=== PATIENT | male | born 1930 | race Caucasian/White ===

== ENCOUNTER 2016-12-20 11:59 | Inpatient (IN) | payer MEDICARE ==
[2016-12-20] MEDS ORDERED: NS 0.9% 1000 ML* 2,000 ML IV ONE (12:19)
[2016-12-20] MEDS ORDERED: Vancomycin(*) 1,000 MG in NS 0.9% 250 ML* 250 ML IVPB ONE (12:19)
[2016-12-20] MEDS ORDERED: Levofloxacin 750 MG IVPREMIX(* 750 MG/150 ML BAG IVPB ONE (12:19)
[2016-12-20] MEDS ORDERED: Acetaminophen TAB* 325 MG PO ONE (13:09)
[2016-12-20] MEDS ORDERED: NS 0.9% 250 ML* 250 ML ONE (13:16)
[2016-12-20 13:26] LABS: Hematocrit 39 % (42-52); Hemoglobin 12.9 g/dl (14.0-18.0); Mean Corpuscular HGB Conc 33 g/dl (31-36); Mean Corpuscular Hemoglobin 32 pg (27-31); Mean Corpuscular Volume 96 fL (80-94); Mean Platelet Volume 7 um3 (7.4-10.4); Red Blood Count 4.06 10^6/ul (4.0-5.4); Red Cell Distribution Width 15 % (10.5-15); White Blood Count 15.7 10^3/ul (3.5-10.8)
[2016-12-20] MEDS ORDERED: Vancomycin(*) 1,000 MG BAG IVPB ONE (13:32)
[2016-12-20 13:34] LABS: Albumin 2.7 g/dL (3.2-5.2); BUN/Creatinine Ratio 16.8 (8-20); Calcium 9.1 mg/dL (8.6-10.3); EGFR African American 78.9 (>60); EGFR Non-African American 61.4 (>60); Globulin 3.6 g/dL (2-4); Potassium 4.5 mmol/L (3.5-5.0); Total Bilirubin 0.8 mg/dL (0.2-1.0); Total Protein 6.3 g/dL (6.4-8.9)
--- NOTE | 2016-12-20 13:36 | RAD ---
INDICATION: Cough and fever. COMPARISON: Comparison is made with a prior study from November 18, 2016. TECHNIQUE: A portable view of the chest was obtained. FINDINGS: Cardiac and mediastinal contours appear to be within normal limits. There is elevation of the right hemidiaphragm which is unchanged. The lungs are underinflated and clear. No pleural effusion is seen. IMPRESSION: NO EVIDENCE FOR ACUTE FINDING.
[2016-12-20 13:44] LABS: Troponin I 0.07 ng/mL (<0.04)
[2016-12-20] MEDS ORDERED: Oseltamivir CAP* 75 MG PO ONE (13:48)
[2016-12-20 13:50] LABS: Urine Bacteria Absent (Absent); Urine Bilirubin Negative (Negative); Urine Glucose Negative (Negative); Urine Nitrite Negative (Negative)
[2016-12-20] MEDS ORDERED: LORazepam INJ* 2 MG/ML 1 ML VIAL ONE (14:25)
--- NOTE | 2016-12-20 14:55 | RAD ---
INDICATION: No onset seizure. COMPARISON: Comparison is made with a prior CT of the brain from November 18, 2016. TECHNIQUE: Contiguous axial sections of the brain were obtained from the skull base to the vertex without contrast. The exam is limited due to motion artifact. FINDINGS: The ventricles, cisterns and sulci are enlarged consistent with age-related atrophy. There are multiple focal areas of decreased density in the subcortical and periventricular white matter suggestive of moderate chronic small vessel ischemic changes. There is a lacunar infarct present within the right caudate nucleus. There is no evidence for hemorrhage. There is soft tissue swelling anterior to the right frontal bone. No fracture is seen. There is mild mucosal thickening within the ethmoid air cells and left maxillary sinus. No air-fluid levels are present. IMPRESSION: 1. LIMITED STUDY, NO EVIDENCE FOR ACUTE INTRACRANIAL NORMALITY. 2. ATROPHY AND MODERATE CHRONIC SMALL VESSEL ISCHEMIC CHANGES. 3. 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
--- NOTE | 2016-12-20 15:03 | RAD ---
INDICATION: Left lower quadrant pain, evaluate for diverticulitis. COMPARISON: Correlation is made with a prior CT of the abdomen and pelvis from November 18, 2016. TECHNIQUE: A CT scan of the abdomen and pelvis was performed without intravenous or oral contrast. Contiguous axial sections were obtained from the lung bases through the symphysis pubis. Images were reconstructed in the coronal and sagittal planes. The exam is limited due to motion artifact. FINDINGS: There are dependent bilateral lower lobe infiltrates seen on images through the lung bases. No pleural effusion is present. The liver has a lobulated appearance. No focal abnormality is seen on this noncontrast study no calcified gallstones are seen. The pancreas appears to be within normal limits. The spleen is normal in size. There are several calcifications present suggestive of old granulomatous disease. The adrenal glands and kidneys are normal in size. No renal calculi or hydronephrosis is seen. There is a cyst arising from the posterior aspect of the left kidney measuring 2.6 cm in size. The aorta is normal in caliber with moderate calcific plaque present. No significant enlarged retroperitoneal lymph nodes are seen. The stomach, small and large bowel appear nondistended. The appendix is not visualized. There is moderate descending and sigmoid diverticulosis without evidence for diverticulitis. No free intraperitoneal air or fluid is seen. There is a mild compression fracture of the superior endplate of the T12 vertebral body which is unchanged. No other focal osseous abnormalities are seen. IMPRESSION: 1. BILATERAL LOWER LOBE INFILTRATES. 2. NO EVIDENCE FOR ACUTE FINDING IN THE ABDOMEN OR CAUSE FOR THE PATIENT'S ABDOMINAL PAIN IS SEEN.
[2016-12-20] MEDS ORDERED: Codeine TAB* 15 MG PO PRN (16:08)
[2016-12-20] MEDS ORDERED: Albuterol/Ipratropium NEB.SOL* Albuterol 2.5 MG/Ipratropium 0.5 MG 3 ML INH PRN (16:09)
[2016-12-20] MEDS ORDERED: Saline NASAL SPRAY 0.65%* BTL BOTH NARES PRN (16:15)
[2016-12-20] MEDS ORDERED: CMCS: Lactase Enzyme (NF) 3,000 UNIT TAB PO PRN (16:15)
[2016-12-20] MEDS ORDERED: NS 0.9% 1000 ML* 1,000 ML IV SCH (16:15)
[2016-12-20] MEDS ORDERED: Bisacodyl SUPP* 10 MG SUPP PR PRN (16:15)
[2016-12-20] MEDS ORDERED: guaiFENesin LIQ* 100 MG/5 ML UDC PO PRN (16:15)
[2016-12-20] MEDS ORDERED: Acetaminophen SUPP* 650 MG SUPP PR PRN (16:15)
[2016-12-20] MEDS ORDERED: Magnesium Hydroxide LIQ* 30 ML UDC PO PRN (16:15)
[2016-12-20] MEDS ORDERED: Ondansetron TAB* 4 MG PO PRN (16:15)
[2016-12-20] MEDS ORDERED: Al Hydrox/Mg Hydrox/Simet LIQ* 30 ML UDC PO PRN (16:15)
[2016-12-20] MEDS ORDERED: Acetaminophen TAB* 325 MG PO PRN (16:15)
--- NOTE | 2016-12-20 17:40 | ED ---
Ace Valdez Erika, scribed for Venkatesh Elizabeth MD on 12/20/16 at 1224 . Complex/Multi-Sys Presentation - HPI Summary HPI Summary: Patient is an 86-year-old male presenting to the ED with a CC of weakness. Majority of history is provided by pt's son. He reports that patient has been here 5x in the past few months, due to temporal arteritis and diverticulitis. Son reports that pt has been taking prednisone for the temporal arteritis, but each time he is tapered off symptoms return, including left temporal headache, confusion, and short-term memory loss. Per son, this episode seems different. Pt had a fever (max 100.7) last night, has been increasingly weak, and has had an increased cough. 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 En route by EMS, pt had a low O2 sat, which son states has not occurred in the past - pt does not use home O2. Son also reports that pt has been complaining of some LLQ pain. Pt lives at [facility], where he moved recently after living at [facility]. Last admission reviewed: 11/18-11/22 - at that point he had AMS, concerning UA, and he was put on antibiotics and 60mg daily of prednisone. - History Of Current Complaint Hx Obtained From: Patient, Family/Fire Support Specialist - Son Onset/Duration: Gradual Onset, Lasting Days, Worse Since Timing: Constant Severity Currently: Moderate Aggravating Factor(s): Nothing Alleviating Factor(s): Nothing Associated Signs And Symptoms: Positive: Weakness, Cough, Abdominal Pain, Fever - Allergies/Home Medications Allergies/Adverse Reactions: Allergies Allergy/AdvReac Type Severity Reaction Status Date / Time Cephalosporins Allergy Unknown Verified 11/18/16 10:08 Reaction Details Ciprofloxacin Allergy Unknown Verified 11/21/16 10:39 Reaction Details Penicillins Allergy Unknown Verified 11/18/16 10:08 Reaction Details Sulfa Antibiotics Allergy Unknown Verified 11/18/16 10:08 Reaction Details Sulfamethoxazole Allergy Unknown Verified 11/18/16 10:08 w/Trimethoprim Reaction [From Bactrim] Details Home Medications: Home Medications Acetaminophen TAB* [Tylenol TAB*] 650 mg PO Q4H PRN 12/20/16 [History Confirmed 12/20/16] Pantoprazole TAB (NF) [Protonix TAB (NF)] 20 mg PO DAILY 12/20/16 [History Confirmed 12/20/16] guaiFENesin LIQ* [Robitussin*] 10 ml PO Q4H PRN 12/20/16 [History Confirmed ] predniSONE TAB* [Deltasone TAB*] 60 mg PO DAILY 12/20/16 [History Confirmed ] PMH/Surg Hx/FS Hx/Imm Hx Endocrine/Hematology History: Reports: Hx Thyroid Disease - hypothyroidism, Other Endocrine/Hematological Disorders - HYPOPARATHYROIDISM Denies: Hx Diabetes Cardiovascular History: Reports: Hx Congestive Heart Failure, Hx Coronary Artery Disease, Hx Hypertension, Other Cardiovascular Problems/Disorders - CAD, TEMPORAL ARTERITIS Denies: Hx Pacemaker/ICD Respiratory History: Reports: Hx Asthma GI History: Reports: Hx Diverticulosis, Hx Gastroesophageal Reflux Disease, Other GI Disorders - CONSTIPATION OCCASIONALY History: Reports: Hx Benign Prostatic Hyperplasia, Other Problems/ Disorders - HX OF BLADDER INFECTION, UTI's Musculoskeletal History: Reports: Hx Arthritis Sensory History: Reports: Hx Cataracts - cataracts surgery "few years ago", Hx Contacts or Glasses - reading glasses, Hx Hearing Aid Opthamlomology History: Reports: Hx Cataracts - cataracts surgery "few years ago ", Hx Contacts or Glasses - reading glasses Neurological History: Reports: Hx Headaches, Hx Migraine, Hx Transient Ischemic Attacks (TIA) Psychiatric History: Denies: Hx Panic Disorder - Cancer History Cancer Type, Location and Year: PROSTATE CA, melanoma Hx Chemotherapy: Yes - Surgical History Surgery Procedure, Year, and Place: THORACIC OUTLET 1979, left tkr, mastoid bilat ears, carpal tunnel, hernia X2, cataracts, melanoma removed right side of face Hx Anesthesia Reactions: No Infectious Disease History: Reports: Hx Clostridium Difficile, Hx of Known/ Suspected MRSA - Negative MRSA 10/15/2016, Hx Shingles - Family History Known Family History: Positive: Cardiac Disease, Hypertension, Diabetes - Social History Occupation: Retired Lives: Assisted Living Alcohol Use: Occasionally Hx Substance Use: No Substance Use Type: Reports: None Substance Use Comment - Amount & Last Used: per son, pain medication substance use- mid after thoracic outlet sx Hx Tobacco Use: No Smoking Status (MU): Never Smoked Tobacco Review of Systems Positive: Fever Positive: Cough Positive: Abdominal Pain - LLQ Positive: Weakness All Other Systems Reviewed And Are Negative: Yes Physical Exam - Summary Physical Exam Summary: Constitutional: Comfortable, pleasant, alert. Appears generally weak. Pt is having some chills HEENT: moist mucosa, AUDRA Neck: Soft, supple, no adenopathy, no edema Heart: Tachycardic at 102 bpm. Heart sounds distant, no murmurs, rubs, or gallops Lungs: Rales and rhonchi in the left lower lobe Abdomen: Soft, flat, some tenderness without rebound in the LLQ Extremities: Bilateral pitting edema without redness Neurological: A&Ox3 Psychological: logical, coherent Triage Information Reviewed: Yes Vital Signs On Initial Exam: Temp Pulse Resp BP Pulse Ox 98.7 F 101 20 126/59 97 12/20/16 12:16 12/20/16 12:16 12/20/16 12:16 12/20/16 12:16 12/20/16 12:16 Vital Signs Reviewed: Yes Diagnostics - Vital Signs Vital Signs Temp Pulse Resp BP Pulse Ox 12/20/16 15:30 106 27 99/57 91 12/20/16 15:28 105 23 94/55 91 12/20/16 15:15 104 26 98/74 92 12/20/16 15:00 108 27 119/85 92 12/20/16 14:46 118/50 12/20/16 14:18 110 26 93 12/20/16 14:16 110 27 111/88 94 12/20/16 14:00 110 26 182/56 93 12/20/16 13:57 101.7 F 12/20/16 13:45 119 29 193/143 95 12/20/16 13:30 131 18 171/141 92 12/20/16 13:15 121 27 157/98 93 12/20/16 13:00 118 28 162/99 94 12/20/16 12:58 29 141/86 12/20/16 12:30 29 146/56 12/20/16 12:16 98.7 F 101 20 126/59 97 12/20/16 12:10 104 92 12/20/16 12:09 126/59 - Laboratory Lab Results: Lab Results 12/20/16 12/20/16 12/20/16 Range/Units 12:50 12:50 12:50 WBC 15.7 H (3.5-10.8) 10^3/ul RBC 4.06 (4.0-5.4) 10^6/ul Hgb 12.9 L (14.0-18.0) g/dl Hct 39 L (42-52) % MCV 96 H (80-94) fL MCH 32 H (27-31) pg MCHC 33 (31-36) g/dl RDW 15 (10.5-15) % Plt Count 203 (150-450) 10^3/ul MPV 7 L (7.4-10.4) um3 Neut % (Auto) 93.8 H (38-83) % Lymph % (Auto) 4.1 L (25-47) % [place] % (Auto) 1.8 (1-9) % Eos % (Auto) 0.1 (0-6) % Baso % (Auto) 0.2 (0-2) % Absolute Neuts (auto) 14.8 H (1.5-7.7) 10^3/ul Absolute Lymphs (auto) 0.6 L (1.0-4.8) 10^3/ul Absolute Monos (auto) 0.3 (0-0.8) 10^3/ul Absolute Eos (auto) 0 (0-0.6) 10^3/ul Absolute Basos (auto) 0 (0-0.2) 10^3/ul Absolute Nucleated RBC 0.01 10^3/ul Nucleated RBC % 0.1 INR (Anticoag Therapy) 0.99 (0.89-1.11) APTT 19.3 L (26.0-36.3) seconds Fibrinogen 513 H (110.8-404.3) mg/dL Sodium (133-145) mmol/L Potassium (3.5-5.0) mmol/L Chloride (101-111) mmol/L Carbon Dioxide (22-32) mmol/L Anion Gap (2-11) mmol/L BUN (6-24) mg/dL Creatinine (0.67-1.17) mg/dL Est GFR ( Amer) (>60) Est GFR (Non-Af Amer) (>60) BUN/Creatinine Ratio (8-20) Glucose (70-100) mg/dL Lactic Acid (0.5-2.0) mmol/L Calcium (8.6-10.3) mg/dL Total Bilirubin (0.2-1.0) mg/dL AST (13-39) U/L ALT (7-52) U/L Alkaline Phosphatase (34-104) U/L Troponin I (<0.04) ng/mL B-Natriuretic Peptide ( - 100) pg/mL Total Protein (6.4-8.9) g/dL Albumin (3.2-5.2) g/dL Globulin (2-4) g/dL Albumin/Globulin Ratio (1-3) Urine Color Yellow Urine Appearance Cloudy Urine pH 7.0 (5-9) Ur Specific [place] 1.011 (1.010-1.030) Urine Protein 1+(30 mg/dl) H (Negative) Urine Ketones Negative (Negative) Urine Blood 1+ H (Negative) Urine Nitrate Negative (Negative) Urine Bilirubin Negative (Negative) Urine Urobilinogen Negative (Negative) Ur Leukocyte Esterase 3+ H (Negative) Urine WBC (Auto) 3+(>20/hpf) H (Absent) Urine RBC (Auto) 1+(3-5/hpf) H (Absent) Ur Squamous Epith Cells Present H (Absent) Urine Bacteria Absent (Absent) Urine Glucose Negative (Negative) Influenza A (Rapid) (Negative) Influenza B (Rapid) (Negative) 12/20/16 12/20/16 12/20/16 Range/Units 12:50 12:50 13:23 WBC (3.5-10.8) 10^3/ul RBC (4.0-5.4) 10^6/ul Hgb (14.0-18.0) g/dl Hct (42-52) % MCV (80-94) fL MCH (27-31) pg MCHC (31-36) g/dl RDW (10.5-15) % Plt Count (150-450) 10^3/ul MPV (7.4-10.4) um3 Neut % (Auto) (38-83) % Lymph % (Auto) (25-47) % [place] % (Auto) (1-9) % Eos % (Auto) (0-6) % Baso % (Auto) (0-2) % Absolute Neuts (auto) (1.5-7.7) 10^3/ul Absolute Lymphs (auto) (1.0-4.8) 10^3/ul Absolute Monos (auto) (0-0.8) 10^3/ul Absolute Eos (auto) (0-0.6) 10^3/ul Absolute Basos (auto) (0-0.2) 10^3/ul Absolute Nucleated RBC 10^3/ul Nucleated RBC % INR (Anticoag Therapy) (0.89-1.11) APTT (26.0-36.3) seconds Fibrinogen (110.8-404.3) mg/dL Sodium 130 L (133-145) mmol/L Potassium 4.5 (3.5-5.0) mmol/L Chloride 92 L (101-111) mmol/L Carbon Dioxide 31 (22-32) mmol/L Anion Gap 7 (2-11) mmol/L BUN 19 (6-24) mg/dL Creatinine 1.13 (0.67-1.17) mg/dL Est GFR ( Amer) 78.9 (>60) Est GFR (Non-Af Amer) 61.4 (>60) BUN/Creatinine Ratio 16.8 (8-20) Glucose 125 H (70-100) mg/dL Lactic Acid 2.2 H* (0.5-2.0) mmol/L Calcium 9.1 (8.6-10.3) mg/dL Total Bilirubin 0.80 (0.2-1.0) mg/dL AST 14 (13-39) U/L ALT 19 (7-52) U/L Alkaline Phosphatase 52 (34-104) U/L Troponin I 0.07 H* (<0.04) ng/mL B-Natriuretic Peptide ( - 100) pg/mL Total Protein 6.3 L (6.4-8.9) g/dL Albumin 2.7 L (3.2-5.2) g/dL Globulin 3.6 (2-4) g/dL Albumin/Globulin Ratio 0.8 L (1-3) Urine Color Urine Appearance Urine pH (5-9) Ur Specific [place] (1.010-1.030) Urine Protein (Negative) Urine Ketones (Negative) Urine Blood (Negative) Urine Nitrate (Negative) Urine Bilirubin (Negative) Urine Urobilinogen (Negative) Ur Leukocyte Esterase (Negative) Urine WBC (Auto) (Absent) Urine RBC (Auto) (Absent) Ur Squamous Epith Cells (Absent) Urine Bacteria (Absent) Urine Glucose (Negative) Influenza A (Rapid) Positive H (Negative) Influenza B (Rapid) Negative (Negative) 12/20/16 Range/Units 13:50 WBC (3.5-10.8) 10^3/ul RBC (4.0-5.4) 10^6/ul Hgb (14.0-18.0) g/dl Hct (42-52) % MCV (80-94) fL MCH (27-31) pg MCHC (31-36) g/dl RDW (10.5-15) % Plt Count (150-450) 10^3/ul MPV (7.4-10.4) um3 Neut % (Auto) (38-83) % Lymph % (Auto) (25-47) % [place] % (Auto) (1-9) % Eos % (Auto) (0-6) % Baso % (Auto) (0-2) % Absolute Neuts (auto) (1.5-7.7) 10^3/ul Absolute Lymphs (auto) (1.0-4.8) 10^3/ul Absolute Monos (auto) (0-0.8) 10^3/ul Absolute Eos (auto) (0-0.6) 10^3/ul Absolute Basos (auto) (0-0.2) 10^3/ul Absolute Nucleated RBC 10^3/ul Nucleated RBC % INR (Anticoag Therapy) (0.89-1.11) APTT (26.0-36.3) seconds Fibrinogen (110.8-404.3) mg/dL Sodium (133-145) mmol/L Potassium (3.5-5.0) mmol/L Chloride (101-111) mmol/L Carbon Dioxide (22-32) mmol/L Anion Gap (2-11) mmol/L BUN (6-24) mg/dL Creatinine (0.67-1.17) mg/dL Est GFR ( Amer) (>60) Est GFR (Non-Af Amer) (>60) BUN/Creatinine Ratio (8-20) Glucose (70-100) mg/dL Lactic Acid (0.5-2.0) mmol/L Calcium (8.6-10.3) mg/dL Total Bilirubin (0.2-1.0) mg/dL AST (13-39) U/L ALT (7-52) U/L Alkaline Phosphatase (34-104) U/L Troponin I (<0.04) ng/mL B-Natriuretic Peptide 129 H ( - 100) pg/mL Total Protein (6.4-8.9) g/dL Albumin (3.2-5.2) g/dL Globulin (2-4) g/dL Albumin/Globulin Ratio (1-3) Urine Color Urine Appearance Urine pH (5-9) Ur Specific [place] (1.010-1.030) Urine Protein (Negative) Urine Ketones (Negative) Urine Blood (Negative) Urine Nitrate (Negative) Urine Bilirubin (Negative) Urine Urobilinogen (Negative) Ur Leukocyte Esterase (Negative) Urine WBC (Auto) (Absent) Urine RBC (Auto) (Absent) Ur Squamous Epith Cells (Absent) Urine Bacteria (Absent) Urine Glucose (Negative) Influenza A (Rapid) (Negative) Influenza B (Rapid) (Negative) Result Diagrams: 12/20/16 12:50 12/20/16 12:50 Lab Statement: Any lab studies that have been ordered have been reviewed, and results considered in the medical decision making process. - Radiology CXR Radiology Interpretation Completed By: Radiologist - IMPRESSION: NO EVIDENCE FOR ACUTE FINDING. - CT CT Brain CT Interpretation Completed By: Radiologist - IMPRESSION: 1. LIMITED STUDY, NO EVIDENCE FOR ACUTE INTRACRANIAL NORMALITY. 2. ATROPHY AND MODERATE CHRONIC SMALL VESSEL ISCHEMIC CHANGES. 3. 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 CT A/P W/O CT Interpretation Completed By: Radiologist - IMPRESSION: 1. BILATERAL LOWER LOBE INFILTRATES. 2. NO EVIDENCE FOR ACUTE FINDING IN THE ABDOMEN OR CAUSE FOR THE PATIENT'S ABDOMINAL PAIN IS SEEN. - EKG 13:23 Cardiac Rate: Tachycardia - at 131 bpm EKG Rhythm: Sinus Tachycardia Re-Evaluation - Re-Evaluation First Eval Re-Evaluation Time: 14:28 Change: Worse Comment: At CT scan, pt had a 30 second tonic-clonic seizure, self-resolved, maintained his airway, discussed with family - no prior Hx of seizures. Will include head CT. Complex Multi-Symp Course/Dx Assessment/Plan: He presents febrile, tachycardic, and weak, with cough and SOB. We have diagnosed with influenza. He will be admitted. - Diagnoses Provider Diagnoses: SOB (shortness of breath), Fever and chills, Influenza A - Physician Notifications Discussed Care Of Patient With: Dr. Melissa Groves (pt PCP and hospitalist) at 12: 51 - discussed patient's initial presentation. aware of likely admission. Dr. Groves at 13:51 - would like hospitalist to admit for her. Dr. Waterman ( hospitalist) at 14:05 - agrees to admit Instructed by Provider To: Admit As Inpatient - Critical Care Time Critical Care Time: 30-74 min - 90 minutes Discharge - Discharge Plan Condition: Stable Disposition: ADMITTED TO [facility] documentation as recorded by the Ace zee Erika accurately reflects the service I personally performed and the decisions made by me, Venkatesh Elizabeth MD.
--- NOTE | 2016-12-20 18:51 | HP ---
MEDICATION / ALLERGIES ADDENDUM NOW INCLUDED ON THIS REPORT ADMISSION HISTORY AND PHYSICAL: DATE OF ADMISSION: 12/20/16 PRIMARY CARE PROVIDER: Dr. Melissa Groves. HEALTHCARE PROXY: His son. CODE STATUS: Full, discussed with the patient and his son. SOURCE OF INFORMATION: History obtained from interview with the patient, his son, review of past medical records. RELIABILITY: Fair. CHIEF COMPLAINT: Fever. HISTORY OF PRESENT ILLNESS: This is an 86-year-old gentleman, past medical history of temporal arteritis with two flares with steroid tapering, last flare 11/18/16, as well as history of CVA, who has been a resident of [facility], had been doing relatively well despite last several months of setbacks until the day prior to presentation. The son last saw him 24 hours prior to presentation , he was noted to be increasingly lethargic and overnight was noted to have increased temperature to a max of 101.7, that was improved with Tylenol. However, in the morning, he was noted to have decreased oxygen saturation and he had to be started on oxygen. Therefore, was sent to the emergency room. He was noted to have new cough over the last 24 hours associated with wheeze, productive of scant yellow sputum. In the emergency room, he was noted with temperature of 101.7 again and tested positive for influenza A. CAT scan of his abdomen was being performed by the emergency room provider at which time it was thought that he had a seizure after being transferred to the scanning machine. When seen by this author, the patient was contracted on his side with low-frequency tremors, lasted for less than 30 seconds, after which he was fully oriented to himself, knew the president. In this author's opinion, it is unclear this truly represented a seizure. When seen again in the emergency room by this author, he did note shortness of breath, although was increasingly confused since the time of presentation. 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 ADDENDUM: HOME MEDICATIONS: 1. Ascorbic acid 500 mg every other day. 2. Tramadol 500 mg twice daily. 3. Clopidogrel 75 mg at bedtime. 4. Calcium carbonate 1 tab twice daily. 5. Prednisone 60 mg daily. 6. Flomax 0.8 mg at bedtime. 7. Saline nasal spray one spray both nares twice daily. 8. Vitamin B12 at 1000 mcg daily. 9. Zofran 4 mg every 4 hours as needed for nausea. 10. Synthroid 50 mcg daily. 11. Lactase 3000 units three times a day before meals as needed. 12. Ferrous sulfate 325 mg every other day. 13. Erythromycin ophthalmic ointment 1 application both eyes at bedtime. 14. Benadryl 25 mg three times a day as needed for sleep. 15. Maalox 15 mL every 4 hours as needed. 16. Acetaminophen oral or per rectum 650 mg every 4 hours as needed for pain or fever. 17. Guaifenesin 10 mL every 4 hours as needed for cough. 18. Protonix 20 mg daily. 19. Dulcolax suppository 10 mg at night as needed for constipation. 20. Milk of Magnesia 30 mL daily as needed. ALLERGIES: CEPHALOSPORIN, CIPROFLOXACIN, PENICILLIN, SULFA ANTIBIOTICS and BACTRIM. PROBLEMS: 1. Pneumonia secondary to flu and was treated with oseltamivir for 5 days. Received first dose in the emergency room. FAMILY HISTORY: Reviewed and noncontributory to this admission. SOCIAL HISTORY: Lives in [facility]. Nonsmoker. Nondrinker. He is . Son is surrogate decision maker. REVIEW OF SYSTEMS: As per HPI. Otherwise, all others negative. PHYSICAL EXAMINATION GENERAL: Elderly gentleman sitting up in bed. Moderate respiratory distress with intercostal retractions. VITAL SIGNS: When seen by this author, 99/57, heart rate 103, respiratory rate is 28, 93% on 3 L nasal cannula, T-max in the emergency room 101.7. HEENT: His oropharynx is clear. He has dry mucous membranes. Sclerae anicteric. NECK: He has nonelevated JVD. LUNGS: Have diffuse end-expiratory wheezes with bibasilar rales. HEART: He is tachycardic without appreciable murmurs. ABDOMEN: Soft, nontender, nondistended. He has positive bowel sounds. EXTREMITIES: Warm and well perfused with 3+ lower extremity pitting edema to the knees. NEUROLOGIC: He was alert and oriented x3 without cranial nerve deficits. Did not have temporal artery tenderness bilaterally. DIAGNOSTIC STUDIES/LAB DATA: Labs reviewed: Notable for positive influenza B. White blood cell count 15.7, hemoglobin 12.9, platelets 203. Sodium 130, chloride 92, bicarb 31, BUN 19, creatinine 1.13, glucose 125, lactic acid 2.2. Troponin I 0.07. BNP 129. Data reviewed: CT abdomen and pelvis: Bilateral lower lobe infiltrates. No evidence for acute findings in abdomen. CT brain, impression: Limited study. No evidence of acute intracranial abnormalities. Atrophy and moderate chronic small vessel ischemic changes. There is an old lacunar infarct in the right caudate nucleus. ASSESSMENT AND PLAN: This is an 86-year-old man, past medical history of temporal arteritis as well as recent cerebrovascular accident in the last year, presenting with fevers, found in respiratory distress in the setting of influenza A pneumonia. 1. Respiratory failure: Now requiring oxygen and increased respiratory rate. Admit to ICU. Place on Vapotherm. Having paroxysms of coughing make it difficult for him to ventilate. We will treat with codeine now and again in the future if needed or p.r.n. DuoNebs p.r.n. We will increase systemic steroids to stress dose in the setting of influenza pneumonia. Volume resuscitation 125 cc normal saline per hour for one additional liter. 2. Temporal arteritis: Increase steroids as indicated above. 3. Hypertension: Holding home medications. 4. Elevated troponin: Trend troponin, suspect in the setting of demand ischemia. 5. Concern for seizure: When seen by this author, __not__ consistent with seizure activity especially given rapid resolution of mental status immediately status post event. Although this is possible in the setting of cerebrovascular accident and temporal arteritis, we will treat this critical illness, not start antiepileptics at this time. We will place on seizure precautions. 6. Code status remains full. Discussed with the patient and his son. TIME SPENT: Greater than 75 minutes was spent in admission history and physical of this patient, of which greater than half was spent [id number] with the patient. CC: Dr. Melissa Groves * [id number] #: [id number] #: [id number] [facility]
--- NOTE | 2016-12-20 19:08 | HP ---
HISTORY AND PHYSICAL: * ADDENDUM: DATE OF ADMISSION: 12/20/16 HOME MEDICATIONS: 1. Ascorbic acid 500 mg every other day. 2. Tramadol 500 mg twice daily. 3. Clopidogrel 75 mg at bedtime. 4. Calcium carbonate 1 tab twice daily. 5. Prednisone 60 mg daily. 6. Flomax 0.8 mg at bedtime. 7. Saline nasal spray one spray both nares twice daily. 8. Vitamin B12 at 1000 mcg daily. 9. Zofran 4 mg every 4 hours as needed for nausea. 10. Synthroid 50 mcg daily. 11. Lactase 3000 units three times a day before meals as needed. 12. Ferrous sulfate 325 mg every other day. 13. Erythromycin ophthalmic ointment 1 application both eyes at bedtime. 14. Benadryl 25 mg three times a day as needed for sleep. 15. Maalox 15 mL every 4 hours as needed. 16. Acetaminophen oral or per rectum 650 mg every 4 hours as needed for pain or fever. 17. Guaifenesin 10 mL every 4 hours as needed for cough. 18. Protonix 20 mg daily. 19. Dulcolax suppository 10 mg at night as needed for constipation. 20. Milk of Magnesia 30 mL daily as needed. ALLERGIES: CEPHALOSPORIN, CIPROFLOXACIN, PENICILLIN, SULFA ANTIBIOTICS and BACTRIM. Problems: 1. Pneumonia secondary to flu and was treated with oseltamivir for 5 days. Received first dose in the emergency room. [id number]/[facility] #: [id number] MTDD
[2016-12-20] MEDS: Hydrocortisone INJ* 100 MG VIAL IV SCH (20:04)
[2016-12-20] MEDS: Tamsulosin CAP* 0.4 MG PO SCH (20:06)
[2016-12-20] MEDS: Clopidogrel TAB* 75 MG PO SCH (20:06)
[2016-12-20] MEDS: Erythromycin OPTH OINT* APPLIC OINT BOTH EYES SCH (22:21)
[2016-12-20] MEDS: Oseltamivir CAP* 75 MG PO SCH (22:22)
[2016-12-20] MEDS: Heparin VIAL(*) 5000 UNITS/ML VIAL (FIVE THOUSAND) SUBCUT SCH (22:22)
[2016-12-21] MEDS: Hydrocortisone INJ* 100 MG VIAL IV SCH ×3 (01:26→17:01)
[2016-12-21] MEDS ORDERED: Levothyroxine TAB* 25 MCG TAB ONE (02:49)
[2016-12-21 06:06] LABS: Hematocrit 30 % (42-52); Hemoglobin 10.1 g/dl (14.0-18.0); Mean Corpuscular HGB Conc 34 g/dl (31-36); Mean Corpuscular Hemoglobin 32 pg (27-31); Mean Corpuscular Volume 95 fL (80-94); Mean Platelet Volume 7 um3 (7.4-10.4); Red Blood Count 3.18 10^6/ul (4.0-5.4); Red Cell Distribution Width 15 % (10.5-15); White Blood Count 14.6 10^3/ul (3.5-10.8)
[2016-12-21] MEDS: Levothyroxine TAB* 50 MCG TAB PO SCH (06:08)
[2016-12-21] MEDS: Heparin VIAL(*) 5000 UNITS/ML VIAL (FIVE THOUSAND) SUBCUT SCH ×3 (06:08→21:45)
[2016-12-21 07:04] LABS: Calcium 7.7 mg/dL (8.6-10.3); EGFR African American 115.9 (>60); EGFR Non-African American 90.1 (>60); Potassium 3.8 mmol/L (3.5-5.0)
[2016-12-21] MEDS: Cyanocobalamin TAB* 500 MCG PO SCH (10:00)
[2016-12-21] MEDS: Oseltamivir CAP* 75 MG PO SCH ×2 (10:01→21:44)
[2016-12-21] MEDS: CMCS: Pantoprazole TAB (NF) 40 MG TAB PO SCH (10:08)
[2016-12-21 11:51] LABS: C Reactive Protein 170.07 mg/L (< 5.00); Magnesium 1.9 mg/dL (1.9-2.7); Phosphorus 3.4 mg/dL (2.5-5.0)
[2016-12-21] MEDS: Levofloxacin 500 MG IVPREMIX(* 500 MG/100 ML BAG IVPB SCH (13:52)
[2016-12-21] MEDS ORDERED: Haloperidol INJ IV/IM* 5 MG/ML AMP ONE (19:31)
[2016-12-21] MEDS: Tamsulosin CAP* 0.4 MG PO SCH (21:44)
[2016-12-21] MEDS: traMADol TAB* 50 MG PO PRN (21:44)
[2016-12-21] MEDS: Erythromycin OPTH OINT* APPLIC OINT BOTH EYES SCH (21:48)
[2016-12-21] MEDS: Clopidogrel TAB* 75 MG PO SCH (21:48)
[2016-12-21] MEDS: Haloperidol INJ IV/IM* 5 MG/ML AMP IV SLOW PU PRN (23:40)
[2016-12-22] MEDS: Hydrocortisone INJ* 100 MG VIAL IV SCH ×2 (02:10→09:29)
[2016-12-22 06:10] LABS: Hematocrit 33 % (42-52); Mean Corpuscular HGB Conc 33 g/dl (31-36); Mean Corpuscular Hemoglobin 32 pg (27-31); Mean Corpuscular Volume 96 fL (80-94); Mean Platelet Volume 8 um3 (7.4-10.4); Red Blood Count 3.48 10^6/ul (4.0-5.4); Red Cell Distribution Width 15 % (10.5-15); White Blood Count 9.7 10^3/ul (3.5-10.8)
[2016-12-22] MEDS: Levothyroxine TAB* 50 MCG TAB PO SCH (06:10)
[2016-12-22] MEDS: Heparin VIAL(*) 5000 UNITS/ML VIAL (FIVE THOUSAND) SUBCUT SCH ×3 (06:10→21:19)
[2016-12-22 06:25] LABS: Albumin 2.2 g/dL (3.2-5.2); BUN/Creatinine Ratio 25.7 (8-20); C Reactive Protein 114.55 mg/L (< 5.00); Calcium 8.5 mg/dL (8.6-10.3); EGFR African American 137.2 (>60); EGFR Non-African American 106.7 (>60); Globulin 2.9 g/dL (2-4); Magnesium 1.9 mg/dL (1.9-2.7); Phosphorus 2.1 mg/dL (2.5-5.0); Potassium 3.6 mmol/L (3.5-5.0); Total Bilirubin 0.3 mg/dL (0.2-1.0); Total Protein 5.1 g/dL (6.4-8.9)
[2016-12-22 07:05] LABS: Erythrocyte Sed Rate 107 mm/Hr (0-40)
[2016-12-22] MEDS ORDERED: Ferrous Sulfate TAB* 325 MG PO SCH (09:00)
[2016-12-22] MEDS ORDERED: Ascorbic Acid TAB* 500 MG PO SCH (09:00)
[2016-12-22] MEDS: Cyanocobalamin TAB* 500 MCG PO SCH (09:30)
[2016-12-22] MEDS: CMCS: Pantoprazole TAB (NF) 40 MG TAB PO SCH (09:30)
[2016-12-22] MEDS: Oseltamivir CAP* 75 MG PO SCH ×2 (09:31→20:25)
--- NOTE | 2016-12-22 12:00 | RAD ---
INDICATION: Pneumonia. COMPARISON: Comparison is made with a prior chest x-ray study from December 20, 2016. TECHNIQUE: A portable view of the chest was obtained. FINDINGS: Cardiac and mediastinal contours appear to be within normal limits. There are bilateral upper lobe infiltrates present toward the lung apices right greater than left which are new from the prior study. No pleural effusion is seen. IMPRESSION: BILATERAL UPPER LOBE INFILTRATES MOST CONSISTENT WITH PNEUMONIA, RECOMMEND CONTINUED FOLLOW-UP.
[2016-12-22] MEDS: Potassium & Sodium Phos 250MG* = 1 PACKET PO SCH ×2 (13:24→20:25)
[2016-12-22] MEDS: Levofloxacin 500 MG IVPREMIX(* 500 MG/100 ML BAG IVPB SCH (13:24)
[2016-12-22] MEDS: Albuterol/Ipratropium NEB.SOL* Albuterol 2.5 MG/Ipratropium 0.5 MG 3 ML INH SCH ×4 (14:13→22:00)
[2016-12-22] MEDS: methylPREDNISolone SOD 40 MG* 1 ML VIAL IV SCH (17:31)
[2016-12-22] MEDS: Tamsulosin CAP* 0.4 MG PO SCH (20:22)
[2016-12-22] MEDS: Clopidogrel TAB* 75 MG PO SCH (20:23)
[2016-12-22] MEDS: Erythromycin OPTH OINT* APPLIC OINT BOTH EYES SCH (20:25)
[2016-12-22] MEDS: Haloperidol INJ IV/IM* 5 MG/ML AMP IV SLOW PU PRN (21:17)
[2016-12-22] MEDS: traMADol TAB* 50 MG PO PRN (21:32)
[2016-12-23] MEDS: Haloperidol INJ IV/IM* 5 MG/ML AMP IV SLOW PU PRN (03:24)
[2016-12-23] MEDS: methylPREDNISolone SOD 40 MG* 1 ML VIAL IV SCH ×2 (05:47→18:23)
[2016-12-23] MEDS: Albuterol/Ipratropium NEB.SOL* Albuterol 2.5 MG/Ipratropium 0.5 MG 3 ML INH SCH ×4 (05:49→18:15)
[2016-12-23] MEDS: Heparin VIAL(*) 5000 UNITS/ML VIAL (FIVE THOUSAND) SUBCUT SCH ×3 (05:54→20:43)
[2016-12-23] MEDS: Levothyroxine TAB* 50 MCG TAB PO SCH (05:54)
[2016-12-23 06:26] LABS: Hematocrit 32 % (42-52); Hemoglobin 10.8 g/dl (14.0-18.0); Mean Corpuscular HGB Conc 34 g/dl (31-36); Mean Corpuscular Hemoglobin 32 pg (27-31); Mean Corpuscular Volume 94 fL (80-94); Mean Platelet Volume 8 um3 (7.4-10.4); Red Cell Distribution Width 14 % (10.5-15); White Blood Count 9.3 10^3/ul (3.5-10.8)
[2016-12-23 06:48] LABS: Albumin 2.3 g/dL (3.2-5.2); BUN/Creatinine Ratio 24.1 (8-20); C Reactive Protein 70.18 mg/L (< 5.00); Calcium 8.3 mg/dL (8.6-10.3); EGFR African American 112.7 (>60); EGFR Non-African American 87.6 (>60); Globulin 2.9 g/dL (2-4); Phosphorus 2.1 mg/dL (2.5-5.0); Potassium 3.6 mmol/L (3.5-5.0); Total Bilirubin 0.3 mg/dL (0.2-1.0); Total Protein 5.2 g/dL (6.4-8.9)
[2016-12-23 07:12] LABS: Erythrocyte Sed Rate 100 mm/Hr (0-40)
[2016-12-23] MEDS: Potassium & Sodium Phos 250MG* = 1 PACKET PO SCH ×3 (10:02→20:37)
[2016-12-23] MEDS: Oseltamivir CAP* 75 MG PO SCH ×2 (10:03→20:37)
[2016-12-23] MEDS: CMCS: Pantoprazole TAB (NF) 40 MG TAB PO SCH (10:04)
[2016-12-23] MEDS: Cyanocobalamin TAB* 500 MCG PO SCH (10:05)
[2016-12-23] MEDS: Levofloxacin 500 MG IVPREMIX(* 500 MG/100 ML BAG IVPB SCH (16:49)
--- NOTE | 2016-12-23 17:24 | CONS ---
CONSULTATION REPORT: DATE OF CONSULT: 10/23/17 REQUESTING PHYSICIAN: Melissa Groves MD CONSULTING SERVICE: Infectious Disease. REASON FOR CONSULTATION: Influenza A infection and E coli bacteremia secondary to urinary tract infection. IMPRESSION: 1. Influenza A infection. 2. Escherichia coli bacteremia secondary to Escherichia coli urinary tract infection without obstructing stone or hydronephrosis on the CT scan. 3. Sepsis present on admission due to the above, resolved. 4. Chronic high dose steroid use for giant cell arteritis. 5. ALLERGIES to CEPHALOSPORIN, CIPRO, PENICILLIN, SULFA, tolerating Levaquin. 6. Encephalopathy, present on admission. RECOMMENDATIONS: Agree with continuing with Tamiflu and Levaquin while determining of the CEPHALOSPORIN ALLERGY. If it was just an intolerance, I would agree with changing him to ceftriaxone. We will recheck his blood cultures tomorrow. As long as they are negative and he continues to and he improves, he would not need a long course of IV antibiotics for gram-negative bacteremia. HISTORY OF PRESENT ILLNESS: This is an 86-year-old man on chronic corticosteroids admitted with fever. He cannot provide much of the history given his mental status, which was obtained instead from discussion with Dr. Groves, his nurse, and the patient's son. Apparently, he developed a fever and was more lethargic, clear that he was complaining of much myalgia. Couple of weeks ago, he had developed a cough and was treated with azithromycin as an outpatient. The cough apparently came back the day before admission with wheeze and some yellow sputum production. There was no hemoptysis. He was brought to the ER because of declining mental status. He was found to be febrile, had a positive influenza A PCR. A CT scan of abdomen and pelvis was unremarkable. He subsequently found to have E.coli in the blood and the urine. He has been afebrile since being on medications, which include Tamiflu and Levaquin, which was started on . His white count down from 15,000 to 9000, CRP is decreased from 170 to 70. He denies any pain, but cannot give much of a history than that. PAST MEDICAL HISTORY: 1. Giant cell arteritis, on chronic corticosteroids. 2. History of CVA. 3. Urinary tract infection. 4. Hematuria. 5. Benign prostatic hypertrophy. 6. Patent foraminal ovale. 7. Anemia of chronic disease. 8. Steroid myopathy. 9. Coronary artery disease. 10. Diastolic heart failure. 11. Asthma. 12. Gastroesophageal reflux disease. 13. 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 14. Migraines. 15. Status post left knee arthroplasty x2. 16. Thoracic outlet syndrome. 17. Carpal tunnel release. MEDICATIONS: 1. Tylenol. 2. Plavix. 3. Codeine. 4. Vitamin B12 by mouth. 5. Erythromycin ophthalmic ointment. 6. Heparin subcutaneous injection. 7. Levaquin 500 mg every 24 hours. 8. Levothyroxine. 9. Zofran. 10. Tamiflu 75 mg by mouth twice daily. 11. Pantoprazole. 12. Tamsulosin. 13. Methylprednisolone mg IV every 12 hours. ALLERGIES: CEPHALOSPORIN, CIPROFLOXACIN, PENICILLIN, SULFA, and BACTRIM, unknown reactions. FAMILY HISTORY: No recurrent infections SOCIAL HISTORY: Lives at [facility]. There have been other patients with influenza there. REVIEW OF SYSTEMS: All negative, though his participation is limited. PHYSICAL EXAM: Vital Signs: Temperature is 36.7, heart rate 84, respiratory rate 19, blood pressure 114/49, O2 sat 98% on room air. In general, he is asleep, but awakens to loud voice, falls asleep quickly, does not participate along. Neurologically, he answers questions, follows commands, moves all extremities. There is no lower extremity clonus bilaterally. HEENT: There is no conjunctival hemorrhage. Oropharynx without lesions. Neck is supple without nuchal rigidity. Lymph Nodes: There is no cervical, supraclavicular, inguinal, axillary, or epitrochlear lymphadenopathy. Heart is regular rate and rhythm without murmurs, rubs, or gallops. Lungs: Decreased breath sounds at the bases bilaterally without wheezes, rales, or rhonchi. Abdomen: Soft, nontender, nondistended without hepatosplenomegaly. Skin: There is no rashes or splinter hemorrhages. Musculoskeletal: There is no spine tenderness to palpation or joint synovitis. Left knee arthroplasty incision well healed. No joint effusion there. LABORATORY DATA: Creatinine 0.8. CRP 70. White blood cell count 9, hemoglobin 10, platelets 139. Please see impression and recommendations outlined above, which I have discussed with Dr. Groves. Thanks for asking me to see Mr. Klein in consultation. [id number]/[facility] #: [id number] [facility]
[2016-12-23] MEDS: Clopidogrel TAB* 75 MG PO SCH (20:36)
[2016-12-23] MEDS: Erythromycin OPTH OINT* APPLIC OINT BOTH EYES SCH (20:36)
[2016-12-23] MEDS: Tamsulosin CAP* 0.4 MG PO SCH (20:37)
[2016-12-24] MEDS: Albuterol/Ipratropium NEB.SOL* Albuterol 2.5 MG/Ipratropium 0.5 MG 3 ML INH SCH ×6 (00:04→23:01)
[2016-12-24] MEDS: methylPREDNISolone SOD 40 MG* 1 ML VIAL IV SCH ×2 (05:51→17:47)
[2016-12-24] MEDS: Heparin VIAL(*) 5000 UNITS/ML VIAL (FIVE THOUSAND) SUBCUT SCH ×3 (05:58→22:27)
[2016-12-24] MEDS: Levothyroxine TAB* 50 MCG TAB PO SCH (06:00)
[2016-12-24 06:38] LABS: Hematocrit 31 % (42-52); Hemoglobin 10.5 g/dl (14.0-18.0); Mean Corpuscular HGB Conc 34 g/dl (31-36); Mean Corpuscular Hemoglobin 32 pg (27-31); Mean Corpuscular Volume 94 fL (80-94); Mean Platelet Volume 8 um3 (7.4-10.4); Red Blood Count 3.29 10^6/ul (4.0-5.4); Red Cell Distribution Width 15 % (10.5-15)
[2016-12-24 06:55] LABS: BUN/Creatinine Ratio 25.3 (8-20); C Reactive Protein 34.82 mg/L (< 5.00); Calcium 8.4 mg/dL (8.6-10.3); EGFR African American 126.7 (>60); EGFR Non-African American 98.5 (>60); Potassium 3.7 mmol/L (3.5-5.0)
[2016-12-24] MEDS: CMCS: Pantoprazole TAB (NF) 40 MG TAB PO SCH (09:18)
[2016-12-24] MEDS: Cyanocobalamin TAB* 500 MCG PO SCH (09:18)
[2016-12-24] MEDS: Oseltamivir CAP* 75 MG PO SCH ×2 (09:19→22:27)
[2016-12-24] MEDS: Potassium & Sodium Phos 250MG* = 1 PACKET PO SCH ×3 (09:19→22:27)
[2016-12-24 09:42] LABS: Erythrocyte Sed Rate 78 mm/Hr (0-40)
[2016-12-24] MEDS: Levofloxacin 500 MG IVPREMIX(* 500 MG/100 ML BAG IVPB SCH (13:15)
--- NOTE | 2016-12-24 14:44 | PN ---
Progress Note - Progress Note SOAP: Subjective: DOS: 12/24/15 CC: influenza HPI: 86 year old man admitted with fever and mental status change. More awake today, asking about knife blades. Denies pain. No fever, rash, or diarrhea per RN. He can't give any more history. Objective: [] Vital Signs Temp 36.1 C 12/24/16 11:41 Pulse 105 12/24/16 11:41 Resp 20 12/24/16 11:41 BP 117/50 12/24/16 11:41 Pulse Ox 95 12/24/16 11:41 Intake & Output 12/23/16 12/24/16 12/24/16 18:59 06:59 18:59 Intake Total 550 1713 110 Output Total 200 Balance 350 1713 110 Intake: IV Fluids 50 233 NS (0.9%) 50 233 IVPB 100 ABX - LEVOFLOXACIN 100 Oral 500 1380 110 Output: Urine 200 Other: Estimated Void Large Large # Bowel Movements 0 # Voids 1 5 Gen:no distress Neuro: awake, alert, Ox1, follows commands, moves all extremities HEENT:PERRL, MMM Neck:Supple Heart:RRR no murmur Lungs:rhonci at bases bilaterally Abd:+BS NTND soft Skin: no rash MSK: no joint synovitis LN: no visible or palpable LN Laboratory Results - last 24 hr 12/24/16 12/24/16 06:00 06:00 WBC 8.0 RBC 3.29 L Hgb 10.5 L Hct 31 L MCV 94 MCH 32 H MCHC 34 RDW 15 Plt Count 137 L MPV 8 ESR 78 H Sodium 135 Potassium 3.7 Chloride 101 Carbon Dioxide 29 Anion Gap 5 BUN 19 Creatinine 0.75 Est GFR ( Amer) 126.7 Est GFR (Non-Af Amer) 98.5 BUN/Creatinine Ratio 25.3 H Glucose 166 H Calcium 8.4 L C-Reactive Protein 34.82 H Microbiology 12/20/16 13:00 Aerobic Blood Culture - Final Blood Venous Escherichia Coli Anaerobic Blood Culture - Preliminary No Growth Day 4 Blood Culture - Final 12/20/16 12:50 Urine Culture - Final Urine Escherichia Coli 12/20/16 12:50 Aerobic Blood Culture - Final Blood Venous Escherichia Coli Anaerobic Blood Culture - Final Escherichia Coli Blood Culture - Final 12/20/16 13:15 Influenza Types A,B Antigen (DAVID) - Final Nasopharyngeal Specimen received for Influenza A/B Molecular testing Assessment: 1. encephalopathy, present on admission, unresolved 2. influenza 3. E.coli bacteremia due to E.coli urinary tract infection 4. allergy PCN, ceph, sulfa 5. sepsis, present on admission, resolved Plan: 1. tamiflu day 4/5 2. levofloxacin 500 mg IV Q24hrs day 4, will change to PO if fu BC drawn today are negative. Did have E.coli UTI 10/2016, could be recurrent due to difficult to sterilize focus ie prostatitis; will plan on 28 day course PO abx. 3. steroids dose per Dr Groves
[2016-12-24] MEDS: Tamsulosin CAP* 0.4 MG PO SCH (22:26)
[2016-12-24] MEDS: Clopidogrel TAB* 75 MG PO SCH (22:26)
[2016-12-24] MEDS: Erythromycin OPTH OINT* APPLIC OINT BOTH EYES SCH (23:26)
[2016-12-25] MEDS ORDERED: Furosemide IV* 10 MG/ML 2 ML VIAL (20 MG) IV ONE (03:45)
[2016-12-25] MEDS: Albuterol/Ipratropium NEB.SOL* Albuterol 2.5 MG/Ipratropium 0.5 MG 3 ML INH SCH ×6 (04:34→23:00)
[2016-12-25 06:15] LABS: Hematocrit 35 % (42-52); Hemoglobin 11.5 g/dl (14.0-18.0); Mean Corpuscular HGB Conc 33 g/dl (31-36); Mean Corpuscular Hemoglobin 31 pg (27-31); Mean Corpuscular Volume 94 fL (80-94); Mean Platelet Volume 8 um3 (7.4-10.4); Red Blood Count 3.67 10^6/ul (4.0-5.4); Red Cell Distribution Width 15 % (10.5-15)
[2016-12-25 06:30] LABS: BUN/Creatinine Ratio 25.3 (8-20); C Reactive Protein 19.47 mg/L (< 5.00); Calcium 8.8 mg/dL (8.6-10.3); EGFR African American 112.7 (>60); EGFR Non-African American 87.6 (>60); Potassium 3.9 mmol/L (3.5-5.0)
[2016-12-25] MEDS: Heparin VIAL(*) 5000 UNITS/ML VIAL (FIVE THOUSAND) SUBCUT SCH ×3 (06:31→22:45)
[2016-12-25] MEDS: methylPREDNISolone SOD 40 MG* 1 ML VIAL IV SCH ×2 (06:31→18:01)
[2016-12-25] MEDS: Levothyroxine TAB* 50 MCG TAB PO SCH (06:31)
[2016-12-25 07:38] LABS: Erythrocyte Sed Rate 91 mm/Hr (0-40)
[2016-12-25] MEDS ORDERED: Ferrous Sulfate TAB* 325 MG PO SCH (09:00)
[2016-12-25] MEDS ORDERED: Ascorbic Acid TAB* 500 MG PO SCH (09:00)
[2016-12-25] MEDS: Potassium & Sodium Phos 250MG* = 1 PACKET PO SCH ×3 (09:38→22:47)
[2016-12-25] MEDS: Cyanocobalamin TAB* 500 MCG PO SCH (09:38)
[2016-12-25] MEDS: Oseltamivir CAP* 75 MG PO SCH (09:39)
[2016-12-25] MEDS: CMCS: Pantoprazole TAB (NF) 40 MG TAB PO SCH (09:39)
[2016-12-25] MEDS ORDERED: Ferrous Sulfate LIQ* 300 MG/5 ML UDC PO SCH (10:00)
--- NOTE | 2016-12-25 10:30 | PN ---
Progress Note - Progress Note SOAP: Subjective: DOS: 12/25/15 CC: influenza HPI: 86 year old man admitted with fever and mental status change. More awake today, asking about knife blades. Denies pain. No fever, rash, or diarrhea per RN. He can't give any more history. Objective: [] Vital Signs Temp 36.1 C 12/24/16 11:41 Pulse 105 12/24/16 11:41 Resp 20 12/24/16 11:41 BP 117/50 12/24/16 11:41 Pulse Ox 95 12/24/16 11:41 Intake & Output 12/23/16 12/24/16 12/24/16 18:59 06:59 18:59 Intake Total 550 1713 110 Output Total 200 Balance 350 1713 110 Intake: IV Fluids 50 233 NS (0.9%) 50 233 IVPB 100 ABX - LEVOFLOXACIN 100 Oral 500 1380 110 Output: Urine 200 Other: Estimated Void Large Large # Bowel Movements 0 # Voids 1 5 Gen:no distress Neuro: awake, alert, Ox2, follows commands, moves all extremities HEENT:PERRL, MMM Neck:Supple Heart:RRR no murmur Lungs:rhonchi at bases bilaterally Abd:+BS NTND soft Skin: no rash MSK: no joint synovitis LN: no visible or palpable LN Laboratory Results - last 24 hr 12/24/16 12/24/16 06:00 06:00 WBC 8.0 RBC 3.29 L Hgb 10.5 L Hct 31 L MCV 94 MCH 32 H MCHC 34 RDW 15 Plt Count 137 L MPV 8 ESR 78 H Sodium 135 Potassium 3.7 Chloride 101 Carbon Dioxide 29 Anion Gap 5 BUN 19 Creatinine 0.75 Est GFR ( Amer) 126.7 Est GFR (Non-Af Amer) 98.5 BUN/Creatinine Ratio 25.3 H Glucose 166 H Calcium 8.4 L C-Reactive Protein 34.82 H Microbiology 12/20/16 13:00 Aerobic Blood Culture - Final Blood Venous Escherichia Coli Anaerobic Blood Culture - Preliminary No Growth Day 4 Blood Culture - Final 12/20/16 12:50 Urine Culture - Final Urine Escherichia Coli 12/20/16 12:50 Aerobic Blood Culture - Final Blood Venous Escherichia Coli Anaerobic Blood Culture - Final Escherichia Coli Blood Culture - Final 12/20/16 13:15 Influenza Types A,B Antigen (DAVID) - Final Nasopharyngeal Specimen received for Influenza A/B Molecular testing Assessment: 1. encephalopathy, present on admission, improving 2. influenza 3. E.coli bacteremia due to E.coli urinary tract infection 4. allergy PCN, ceph, sulfa Plan: 1. tamiflu day 5 2. levofloxacin 500 mg IV Q24hrs day 5, will change to PO and plan on 28 day course to cover prostatitis Discussed with Dr Groves
[2016-12-25] MEDS: Levofloxacin TAB* 500 MG PO SCH (12:07)
[2016-12-25] MEDS: Tamsulosin CAP* 0.4 MG PO SCH (22:48)
[2016-12-25] MEDS: Clopidogrel TAB* 75 MG PO SCH (22:48)
[2016-12-25] MEDS: Erythromycin OPTH OINT* APPLIC OINT BOTH EYES SCH (22:53)
[2016-12-26 06:28] LABS: Hematocrit 32 % (42-52); Hemoglobin 10.8 g/dl (14.0-18.0); Mean Corpuscular HGB Conc 34 g/dl (31-36); Mean Corpuscular Hemoglobin 32 pg (27-31); Mean Corpuscular Volume 94 fL (80-94); Mean Platelet Volume 8 um3 (7.4-10.4); Red Blood Count 3.38 10^6/ul (4.0-5.4); Red Cell Distribution Width 15 % (10.5-15); White Blood Count 8.7 10^3/ul (3.5-10.8)
[2016-12-26] MEDS: Heparin VIAL(*) 5000 UNITS/ML VIAL (FIVE THOUSAND) SUBCUT SCH ×2 (06:31→13:47)
[2016-12-26] MEDS: Albuterol/Ipratropium NEB.SOL* Albuterol 2.5 MG/Ipratropium 0.5 MG 3 ML INH SCH ×3 (06:31→11:40)
[2016-12-26] MEDS: Levothyroxine TAB* 50 MCG TAB PO SCH (06:32)
[2016-12-26 06:41] LABS: BUN/Creatinine Ratio 28.2 (8-20); Calcium 8.4 mg/dL (8.6-10.3); EGFR African American 121.1 (>60); EGFR Non-African American 94.2 (>60)
[2016-12-26 07:50] LABS: Erythrocyte Sed Rate 78 mm/Hr (0-40)
[2016-12-26 08:02] VITALS: BP 123/52
[2016-12-26] MEDS: Potassium & Sodium Phos 250MG* = 1 PACKET PO SCH ×2 (08:26→13:47)
[2016-12-26] MEDS: Cyanocobalamin TAB* 500 MCG PO SCH (08:28)
[2016-12-26] MEDS: CMCS: Pantoprazole TAB (NF) 40 MG TAB PO SCH (08:28)
[2016-12-26] MEDS ORDERED: predniSONE TAB* 20 MG PO SCH (09:00)
--- NOTE | 2016-12-26 10:56 | PN ---
Progress Note - Progress Note SOAP: Subjective: DOS: 12/26/15 CC: influenza HPI: 86 year old man admitted with fever and mental status change. Denies pain. No fever, rash, or diarrhea, eating some per RN. He can't give any more history. Objective: [] Vital Signs Temp 36.4 C 12/26/16 07:34 Pulse 94 12/26/16 08:07 Resp 16 12/26/16 08:07 BP 123/52 12/26/16 07:34 Pulse Ox 96 12/26/16 10:15 Intake & Output 12/25/16 12/26/16 12/26/16 18:59 06:59 18:59 Intake Total 350 0 240 Balance 350 0 240 Intake: Oral 350 0 240 Other: Estimated Void Large Large Large # Bowel Movements 0 0 # Voids 3 1 2 Gen:no distress Neuro: awake, alert, Ox2, follows commands, moves all extremities HEENT:PERRL, MMM Neck:Supple Heart:RRR no murmur Lungs:rhonchi at bases bilaterally Abd:+BS NTND soft Skin: no rash MSK: no joint synovitis LN: no visible or palpable LN Laboratory Results - last 24 hr 12/26/16 12/26/16 05:43 05:44 WBC 8.7 RBC 3.38 L Hgb 10.8 L Hct 32 L MCV 94 MCH 32 H MCHC 34 RDW 15 Plt Count 159 MPV 8 ESR 78 H Sodium 135 Potassium 4.0 Chloride 99 L Carbon Dioxide 32 Anion Gap 4 BUN 22 Creatinine 0.78 Est GFR ( Amer) 121.1 Est GFR (Non-Af Amer) 94.2 BUN/Creatinine Ratio 28.2 H Glucose 151 H Calcium 8.4 L C-Reactive Protein 12.00 H Assessment: 1. encephalopathy, present on admission, improving 2. influenza 3. E.coli bacteremia due to E.coli urinary tract infection/acute prostatitis 4. allergy PCN, ceph, sulfa Plan: 1. levofloxacin 500 mg IV Q24hrs day 05/28, to cover prostatitis 2. unclear how much his MS will improve to baseline, this abx may contribute to delerium particularly in the elderly but also provides best drug levels in prostate and the best chance for cure. Discussed with Dr Groves
[2016-12-26] MEDS: Levofloxacin TAB* 500 MG PO SCH (11:50)
--- NOTE | 2016-12-26 12:43 | TRS ---
CC: [facility] DATE OF ADMISSION: 12/20/2016. DATE OF DISCHARGE: 12/26/2016. TRANSFER DIAGNOSES: 1. E. coli urinary tract infection, probable prostatitis with bacteremia. 2. Influenza with pneumonia and respiratory failure. 3. Temporal arteritis. 4. History of cerebrovascular accident. 5. Benign prostatic hypertrophy. 6. Iron deficiency anemia. 7. Steroid myopathy. 8. History of coronary artery disease. 9. Diastolic heart failure. 10. History of asthma. 11. GERD. 12. Hypothyroidism. 13. History of migraine. 14. Status post total knee replacements. 15. History of blepharitis. 16. Hypophosphatemia, corrected. 17. Chronic edema of the lower extremities. 18. Sepsis. HISTORY: Maine Klein is an 86-year-old man admitted on 12/20/2016 with fever, weakness, lethargy, hypoxemia, and cough. Please see the dictated admission note for details of the present illness, past medical history, family history, social and personal history, review of systems, and physical examination. LABORATORY DATA: CBC on admission: WBC 15.7, H and H 12.9/39, MCV 96, PLT 203k ; white count subsequently came down to 8.8 on December 24, was 10 on December 25, 8.7 on December 26; H and H prior to discharge on December 26 was 10.8/ 32 which has been stable; platelet count had gone down as low as 127 on December 21, was up to 171 on December 25, and 159 on December 26. Sed rate started at 107 on December 22, was down to 78 on December 24, then up to 91 on December 25, and 78 again on December 26. INR was 0.99, PTT 19.3, fibrinogen 513. Chemistries on admission: Sodium 130, potassium 4.5, chloride 92, CO2 31, BUN 19, creatinine 1.13, glucose 125; rest of the comprehensive metabolic panel was abnormal for a total protein 6.3, albumin 2.7; phosphorus was 3.4 on December 21, went down to 2.1 on December 23; magnesium was 1.9; BNP was 129 on December 20, 175 on December 23, 262 on December 25; troponins were 0.07, 0.06, 0.06; lactic acid started at 2.2, went down to 1.3. Chemistries prior to discharge on December 26: Sodium 135, potassium 4.0, chloride 99, CO2 32, BUN/ creatinine 22/0.78, glucose 151; CRP started at 170.07, down to 12 prior to discharge on December 26; procalcitonin was 1.4 on December 22. Urinalysis: Yellow, cloudy, specific gravity 1.011, pH 7, dipstick is positive for protein 1+, esterase 3+, WBC's 3+, RBC's 1+. Serology: Influenza A was positive, B was negative. Blood cultures showed two bottles drawn on December 20, both had E. coli in the aerobic culture and one had E. coli in the anaerobic culture. Urine culture on the same day grew E. coli as well, greater than 100,000 colonies. Repeat blood cultures on December 24 were no growth. The sensitivities to the E. coli in the blood on December 20: Intermediate to Ampicillin; resistant to Tetracycline; sensitive to all other antibiotics tested. Urine culture on December 20, E. coli was resistant in the urine: Ampicillin resistant, Tetracycline resistant, Trimethoprim/Sulfa resistant. Imagin. Chest x-ray, 12/20/2016: No acute findings. 2. CT abdomen and pelvis: Bilateral lower lobe infiltrates. No acute findings in the abdomen. 3. Brain CT: No acute findings. Limited study. Atrophy and moderate chronic small vessel ischemic changes. Old lacunar infarct right caudate nucleus. 4. Chest x-ray, 12/22/2016: Bilateral upper lobe infiltrates. 5. EKG, 12/20/2016: Sinus tachycardia to my reading, machine reading said atrial fibrillation. CONSULTATIONS: Infectious Disease, Dr. Reyes, 12/23/2016, felt that he had influenza A, E. coli bacteremia secondary to E. coli UTI without obstructing stone or hydronephrosis on CT, sepsis, chronic high dose steroids, allergies as noted above, and encephalopathy. He recommended finishing up with Tamiflu. If he was not really allergic to cephalosporins, he recommended switching to that, but it could not be determined. He recommended repeating blood cultures and if negative switching him to p.o. antibiotics. This was done. HOSPITAL COURSE: The patient was admitted. In the ER, he was started on Tamiflu and Levofloxacin on the . His labs improved, including his CRP and white count. He was in the ICU initially. He was hypoxemic. He was on Vapotherm, then switched to a 10 liter [place] O2. His cough improved. He was quite delirious, paranoid. He received Haldol for this, as well as having his family come in and sit with him. It was felt that his pneumonia was due to the influenza, although could have also been bacterial. It was likely that his urinary tract infection, which he had had previously, is due to chronic prostatitis. It was felt that a long course of quinolones would be beneficial for this. Because of his chronic high dose steroids for temporal arteritis, he was treated with high dose steroids, initially stress doses of Hydrocortisone and then subsequently switched to Solu- Medrol when he had wheezing. Discussion regarding his wishes for code was held on 12/22/2016 with the patient and family. He did not want to be resuscitated. This was confirmed with a MOLST form. He also did not want to be intubated. His son and daughter- in-law were present and supported this decision. His cough gradually did improve. While in the hospital he had a swallow evaluation and did show some signs of aspiration. [employer] thick liquids were suggested, as well as soft solids. No straws. By December 24, it was felt that he could transfer out of the ICU. He was transferred to the floor. He did have some volume overload for which he was given Furosemide the night of December 24 and December 25. His lungs sound clear. The next day he was switched from IV to p.o. steroids, his usual dose of 60 mg of Prednisone. By December 26, he was feeling better. He continued to cough and was incontinent of urine. He still had hypoxemia, was on oxygen. He said he felt okay and would like to go back to [facility]. PHYSICAL EXAMINATION: Vital signs: Blood pressure 123/52, pulse 91 to 103, respirations 16, temperature afebrile, O2 sat 95 percent on 3 liters nasal canal O2, 89 percent on room air. Chest showed rales at the bases. Heart: Regular, tachy heart. Abdomen: Nontender. Extremities: 2+ edema. It was felt that he could be discharged back to [facility]. I am going to be getting an EKG on him prior to discharge. He will continue on Prednisone. Will continue weekly CRP, CBC, and sed rate. He will have a BMP in two weeks. He will get physical therapy. His diet is mechanical soft solids, nectar thick liquids, no straw. He is to be up with assistance. MEDICATIONS: 1. Levofloxacin 500 mg p.o. daily times 28 days. 2. Prednisone 60 mg daily. 3. Plavix 75 mg daily. 4. Levothyroxine 50 mcg daily. 5. Acetaminophen 650 mg p.o. q.4 hours prn pain. 6. Tamsulosin 0.8 mg p.o. at bedtime. 7. Erythromycin 5 mg prn to both eyes at bedtime. 8. Lactase 3000 mg p.o. t.i.d. before meals. 9. Saline mist one spray both nostrils b.i.d. 10. B12 1000 mcg p.o. daily. 11. Calcium 600/D 400 units p.o. b.i.d. 12. Francia bowel protocol. 13. Tramadol 50 mg p.o. q.12 hours prn pain. 14. Tussin 100 mg/5 ml p.o. q.4 hours prn cough. 15. Ondansetron 4 mg p.o. q.4 hours prn nausea. 16. Mylanta 15 ml p.o. q.4 hours prn indigestion. 17. Pantoprazole 20 mg p.o. daily. 18. Ferrous sulfate 325 mg with vitamin C 500 mg p.o. every other day. [id number]/[facility] #: [id number] MTDD
== END 2016-12-26 13:50 | DRG 871 ==
LOC: ED 11:59 → ICU 16:11 → MED 12-23 11:01
PROVIDERS: ADMIT Internal Medicine; ATTEND Internal Medicine Geriatric Medicine
DX: A41.51 Sepsis due to Escherichia coli [E. coli] (principal); J09.X1 Influenza due to identified novel influenza A virus with pneumonia; J96.91 Respiratory failure, unspecified with hypoxia; G93.40 Encephalopathy, unspecified; I50.32 Chronic diastolic (congestive) heart failure; E27.3 Drug-induced adrenocortical insufficiency; N39.0 Urinary tract infection, site not specified; Z88.0 Allergy status to penicillin; Z88.1 Allergy status to other antibiotic agents; E03.9 Hypothyroidism, unspecified; E20.9 Hypoparathyroidism, unspecified; I25.10 Atherosclerotic heart disease of native coronary artery without angina pectoris; I11.0 Hypertensive heart disease with heart failure; J45.909 Unspecified asthma, uncomplicated; K21.9 Gastro-esophageal reflux disease without esophagitis; N40.0 Benign prostatic hyperplasia without lower urinary tract symptoms; M19.90 Unspecified osteoarthritis, unspecified site; G43.909 Migraine, unspecified, not intractable, without status migrainosus; Z85.46 Personal history of malignant neoplasm of prostate; Z85.820 Personal history of malignant melanoma of skin; Z86.73 Personal history of transient ischemic attack (TIA), and cerebral infarction without residual deficits; Z98.42 Cataract extraction status, left eye; Z98.41 Cataract extraction status, right eye; Z86.14 Personal history of Methicillin resistant Staphylococcus aureus infection; Z82.49 Family history of ischemic heart disease and other diseases of the circulatory system; Z83.3 Family history of diabetes mellitus; Z87.440 Personal history of urinary (tract) infections; Z96.653 Presence of artificial knee joint, bilateral; Z88.2 Allergy status to sulfonamides; M31.6 Other giant cell arteritis; D64.9 Anemia, unspecified; T38.0X5A Adverse effect of glucocorticoids and synthetic analogues, initial encounter; B96.20 Unspecified Escherichia coli [E. coli] as the cause of diseases classified elsewhere; D50.9 Iron deficiency anemia, unspecified; G72.89 Other specified myopathies; E83.39 Other disorders of phosphorus metabolism; R60.9 Edema, unspecified; N41.1 Chronic prostatitis; Z79.52 Long term (current) use of systemic steroids; Z79.02 Long term (current) use of antithrombotics/antiplatelets
CPT/HCPCS: 36415; 70450; 71010; 74176; 80048; 80053; 81003; 81015; 83605; 83735; 83880; 84100; 84145; 84484; 85025; 85027; 85384; 85610; 85652; 85730; 86140; 87040; 87077; 87086; 87186; 87205; 87502; 93005; 94640; 94760; 99285; A9270-GY; J1630; J1644; J1720; J1940; J1956; J2060; J2920; J3370; J7512